=== PATIENT | female | born 1935 | race Caucasian/White ===

== ENCOUNTER 2018-03-25 12:04 | Inpatient (IN) | payer MEDICARE, MEDICAID ==
[2018-03-25] VITALS (26 sets, daily range): BP systolic 82–152; BP diastolic 41–70
[~2018-03-25] VITALS: Ht 144.8 cm; Wt 43.6 kg
[2018-03-25] MEDS ORDERED: PHEN15TA18 PO (12:16)
[2018-03-25] MEDS ORDERED: GABA-529 PO (12:16)
[2018-03-25] MEDS ORDERED: PIPERACILLIN/TAZ 3.375G PREMIX 50 ML IV ONE (12:30)
[2018-03-25] MEDS ORDERED: SODIUM CHLORIDE 0.9% 1000ML BAG (SEPSIS BOLUS) IV ONE (12:30)
[2018-03-25 12:34] LABS: BG CARBOXYHEMOGLOBIN 0.4 % (0.5-1.5); BG DEOXYHEMOGLOBIN 4.9 % (0.0-5.0); BG HCO3 ACT 29.1 mmol/L (22.0-26.0); BG METHEMOGLOBIN 0.2 % (0.0-1.5); BG OXYGEN SATURATION 95.1 % (92.0-98.5); BG OXYHEMOGLOBIN 94.5 % (94.0-97.0); BG PCO2 46.2 mmHg (35.0-45.0); BG PH 7.417 (7.350-7.450); BG PO2 79.9 mmHg (75.0-100.0); BG SAMPLE SITE RIGHT RADIAL; BG VENT MODE ROOM AIR
[2018-03-25] MEDS ORDERED: LEVETIRACETAM 500MG PREMIX 100 ML IV ONE (12:45)
[2018-03-25] MEDS ORDERED: LORAZEPAM 2MG/ML CPJ IV ONE (12:45)
[2018-03-25] MEDS ORDERED: LORAZEPAM 2MG/ML CPJ ONE (12:53)
[2018-03-25] MEDS ORDERED: MIDAZOLAM HCL 50 MG in DEXTROSE 5% WATER 40 ML IV ONE (13:00)
[2018-03-25] MEDS ORDERED: ETOMIDATE 2MG/ML 10ML VIAL IV ONE ×2 (13:00→15:41)
[2018-03-25] MEDS ORDERED: SUCCINYLCHOLINE CHLORIDE 200MG/10ML IV ONE ×2 (13:00→15:41)
[2018-03-25] MEDS ORDERED: VANCOMYCIN 1 G PREMIX 200 ML IV SCH (14:00)
[2018-03-25 14:07] LABS: CHLORIDE 104 mEq/L (98-107)
[2018-03-25 14:10] LABS: PARTIAL THROMBOPLASTIN TIME 24.5 sec (23.4-31.0); PROTHROMBIN TIME 10.2 sec (9.1-11.1)
[2018-03-25 14:33] LABS: BASOPHILS % 1.3 % (0.0-2.0); EOSINOPHILS % 3.9 % (0.0-5.0); HEMATOCRIT. 36.3 % (36.0-48.0); HEMOGLOBIN. 11.4 g/dL (12.0-16.0); LYMPHOCYTES % 26.9 % (20.0-50.0); MEAN CORPUSCULAR HEMOGLOBIN 31.1 pg (28.0-32.0); MEAN CORPUSCULAR VOLUME 98.9 fL (81.0-99.0); MEAN PLATELET VOLUME 10.4 fl (7.4-10.4); MONOCYTES % 8.8 % (2.0-8.0); NEUTROPHILS % 59.1 % (40.0-76.0); PLATELET 299 x1000/uL (130-400); RED BLOOD CELL COUNT 3.67 mill/uL (4.2-5.4); RED CELL DISTRIBUTION WIDTH 14.3 % (11.6-14.6)
[2018-03-25 14:42] LABS: BG BASE EXCESS 1.3 mmol/L (-2.0-2.0); BG CARBOXYHEMOGLOBIN 0.1 % (0.5-1.5); BG DEOXYHEMOGLOBIN 0.5 % (0.0-5.0); BG FRACTION INSPIRED OXYGEN 75; BG HCO3 ACT 24.7 mmol/L (22.0-26.0); BG METHEMOGLOBIN 0.3 % (0.0-1.5); BG OXYGEN SATURATION 99.5 % (92.0-98.5); BG OXYHEMOGLOBIN 99.1 % (94.0-97.0); BG PCO2 34.9 mmHg (35.0-45.0); BG PH 7.468 (7.350-7.450); BG PO2 355.6 mmHg (75.0-100.0); BG SAMPLE SITE LEFT RADIAL; BG TIDAL VOLUME(mL) 350 mL; BG TOTAL HEMOGLOBIN 11.2 g/dL (12.0-18.0); BG VENT MODE VENT - A/C; BG VENT RATE 14 set
[2018-03-25 14:48] LABS: PHENOBARBITAL 3.8 ug/mL (15.0-40.0)
[2018-03-25] MEDS ORDERED: SODIUM BICARBONATE 8.4% 1 MEQ/ML 50ML SYR IV ONE (15:00)
[2018-03-25] MEDS ORDERED: IPRATROPIUM/ALBUTEROL 0.5-3(2.5)MG/3ML NEB INH PRN (15:00)
[2018-03-25] MEDS ORDERED: IPRATROPIUM/ALBUTEROL 0.5-3(2.5)MG/3ML NEB INH SCH (15:00)
[2018-03-25] MEDS ORDERED: DIPHENHYDRAMINE 50MG/ML VIAL IV PRN (15:00)
[2018-03-25] MEDS ORDERED: ONDANSETRON HCL 4MG/2ML INJ IV PRN (15:00)
[2018-03-25] MEDS ORDERED: MAGNESIUM/ALUMINUM HYDROXIDE/SIMETHICONE 30ML UDC PO PRN (15:00)
[2018-03-25] MEDS ORDERED: DOCUSATE SODIUM 100MG CAPSULE PO PRN (15:00)
[2018-03-25] MEDS ORDERED: LORAZEPAM 0.5MG TABLET PO PRN (15:00)
[2018-03-25] MEDS ORDERED: HYDROCODONE/ACETAMINOPHEN 5/325MG TABLET PO PRN (15:00)
[2018-03-25] MEDS ORDERED: LEVETIRACETAM 500 MG in SODIUM CHLORIDE 0.9% 100 ML IV SCH (15:00)
[2018-03-25] MEDS ORDERED: ACETAMINOPHEN 650MG SUPP PR PRN (15:00)
[2018-03-25] MEDS ORDERED: NA PHOS,M-B/NA PHOS,DI-BA ENEMA 118ML PR PRN (15:00)
[2018-03-25] MEDS ORDERED: ACETAMINOPHEN 325MG TABLET PO PRN (15:00)
[2018-03-25] MEDS ORDERED: CLONIDINE 0.1MG TABLET PO PRN (15:00)
[2018-03-25] MEDS ORDERED: PROPOFOL 10MG/ML 100ML 100 ML IV PRN (15:00)
[2018-03-25] MEDS ORDERED: PIPERACILLIN/TAZ 3.375G PREMIX 50 ML IV SCH (15:00)
[2018-03-25] MEDS ORDERED: ALBUTEROL (0.083%) 2.5MG/3ML NEB HHN ONE (15:00)
[2018-03-25] MEDS ORDERED: GUAIFENESIN 200MG/10ML SUGAR FREE UDC PO PRN (15:00)
[2018-03-25 15:12] LABS: CLARITY URINE CLEAR (CLEAR); COLOR URINE YELLOW (YELLOW); KETONES URINE NEGATIVE (NEGATIVE); LEUKOCYTE ESTERASE URINE 1+ (NEGATIVE); NITRITE URINE POSITIVE (NEGATIVE); OCCULT BLOOD URINE NEGATIVE (NEGATIVE); PH URINE 8.5 (4.5-8.0); PROTEIN URINE NEGATIVE (NEGATIVE); SPECIFIC GRAVITY URINE 1.019 (1.005-1.030); UROBILINOGEN URINE 0.2 E.U./dL (0.2-1.0)
[2018-03-25 15:39] LABS: *AMPHETAMINES SCREEN URINE NEGATIVE (NEGATIVE); *BARBITURATES SCREEN URINE PRESUMTIVE POSITIVE (NEGATIVE); *BENZODIAZEPINES SCREEN URINE NEGATIVE (NEGATIVE); *COCAINE SCREEN URINE NEGATIVE (NEGATIVE); CANNABINOID URINE SCREEN NEGATIVE (NEGATIVE); METHADONE URINE SCREEN NEGATIVE (NEGATIVE); OPIATES URINE SCREEN NEGATIVE (NEGATIVE); PHENCYCLIDINE URINE SCREEN NEGATIVE (NEGATIVE)
[2018-03-25] MEDS ORDERED: NOREPINEPHRINE 8 MG in DEXT 5% WATER 242 ML IV ONE ×4 (17:45)
[2018-03-25] MEDS ORDERED: NOREPINEPHRINE 8 MG in DEXT 5% WATER 242 ML IV PRN (19:00)
[2018-03-25] MEDS ORDERED: ENOXAPARIN 30MG/0.3ML SYR SUBCUT SCH (20:00)
[2018-03-25] MEDS: IPRATROPIUM/ALBUTEROL 0.5-3(2.5)MG/3ML NEB INH SCH (20:41)
[2018-03-25 22:22] LABS: CREATINE KINASE MB FRACTION 1.2 ng/mL (0.5-3.6)
[2018-03-25] MEDS: PIPERACILLIN/TAZ 2.25G PREMIX 50 ML IV SCH (22:23)
[2018-03-25] MEDS: DEXT 5%/0.45% NACL 1000ML 1,000 ML IV SCH (22:23)
[2018-03-25] MEDS: PANTOPRAZOLE SODIUM 40 MG/VIAL IV SCH (22:24)
[2018-03-25] MEDS: LEVETIRACETAM 500 MG in SODIUM CHLORIDE 0.9% 100 ML IV SCH (22:25)
[2018-03-26] VITALS (104 sets, daily range): BP systolic 52–160; BP diastolic 26–100
[2018-03-26] MEDS: IPRATROPIUM/ALBUTEROL 0.5-3(2.5)MG/3ML NEB INH SCH ×4 (01:45→22:08)
[2018-03-26 05:44] LABS: BASOPHILS % 0.4 % (0.0-2.0); EOSINOPHILS % 1.4 % (0.0-5.0); HEMATOCRIT. 25.9 % (36.0-48.0); HEMOGLOBIN. 8.5 g/dL (12.0-16.0); LYMPHOCYTES % 11.8 % (20.0-50.0); MEAN CORPUSCULAR HEMOGLOBIN 31.5 pg (28.0-32.0); MEAN CORPUSCULAR VOLUME 96.5 fL (81.0-99.0); MEAN PLATELET VOLUME 9.9 fl (7.4-10.4); NEUTROPHILS % 77.4 % (40.0-76.0); PLATELET 233 x1000/uL (130-400); RED BLOOD CELL COUNT 2.69 mill/uL (4.2-5.4); RED CELL DISTRIBUTION WIDTH 14.4 % (11.6-14.6)
[2018-03-26 06:01] LABS: CHLORIDE 109 mEq/L (98-107)
[2018-03-26 06:18] LABS: LDL CHOLESTEROL 70 mg/dL (5-100)
[2018-03-26 06:19] LABS: CREATINE KINASE 38 IU/L (26-192)
[2018-03-26 06:20] LABS: CREATINE KINASE MB FRACTION 1.4 ng/mL (0.5-3.6); HDL CHOLESTEROL 22 mg/dL (40-59)
[2018-03-26 06:21] LABS: T4 FREE 0.94 ng/dL (0.76-1.46)
[2018-03-26] MEDS: PIPERACILLIN/TAZ 2.25G PREMIX 50 ML IV SCH ×4 (07:15→20:15)
[2018-03-26 08:09] LABS: BG BASE EXCESS 1.9 mmol/L (-2.0-2.0); BG CARBOXYHEMOGLOBIN 0.3 % (0.5-1.5); BG HCO3 ACT 25.6 mmol/L (22.0-26.0); BG METHEMOGLOBIN 0.5 % (0.0-1.5); BG OXYHEMOGLOBIN 98.2 % (94.0-97.0); BG PCO2 36.6 mmHg (35.0-45.0); BG PH 7.463 (7.350-7.450); BG PO2 182.5 mmHg (75.0-100.0); BG SAMPLE SITE RIGHT RADIAL; BG TIDAL VOLUME(mL) 350 mL; BG TOTAL HEMOGLOBIN 9.3 g/dL (12.0-18.0); BG VENT MODE VENT - A/C; BG VENT RATE 14 set
[2018-03-26] MEDS: PANTOPRAZOLE SODIUM 40 MG/VIAL IV SCH (08:41)
[2018-03-26] MEDS: LEVETIRACETAM 500 MG in SODIUM CHLORIDE 0.9% 100 ML IV SCH ×2 (08:41→20:38)
[2018-03-26] MEDS: VANCOMYCIN 750 MG PREMIX 150 ML IV SCH (09:00)
[2018-03-26 09:37] LABS: TOTAL IRON BINDING CAPACITY 244 ug/dL (250-450)
[2018-03-26 09:58] LABS: FERRITIN 43 ng/mL (10-291)
[2018-03-26 10:02] LABS: FOLIC ACID (FOLATE) SERUM >20 ng/mL ng/mL (>5.38)
[2018-03-26 10:15] LABS: VITAMIN B12 SERUM 1428 pg/mL (211-911)
[2018-03-26] MEDS ORDERED: DIATR MEGLU/DIATRIZOATE SOLN 30ML ONE (10:43)
[2018-03-26 12:11] LABS: HEMATOCRIT 28.5 % (36.0-48.0); HEMOGLOBIN 9.4 g/dL (12.0-16.0)
[2018-03-26 12:38] LABS: BG BASE EXCESS -0.4 mmol/L (-2.0-2.0); BG CARBOXYHEMOGLOBIN 0.3 % (0.5-1.5); BG DEOXYHEMOGLOBIN 1.3 % (0.0-5.0); BG FRACTION INSPIRED OXYGEN 40; BG HCO3 ACT 23.8 mmol/L (22.0-26.0); BG METHEMOGLOBIN 0.3 % (0.0-1.5); BG OXYGEN SATURATION 98.7 % (92.0-98.5); BG OXYHEMOGLOBIN 98.1 % (94.0-97.0); BG PCO2 37.1 mmHg (35.0-45.0); BG PH 7.425 (7.350-7.450); BG PO2 156.9 mmHg (75.0-100.0); BG PRESSURE SUPPORT 10; BG SAMPLE SITE RIGHT RADIAL; BG TOTAL HEMOGLOBIN 9.5 g/dL (12.0-18.0); BG VENT MODE VENT - CPAP
[2018-03-26] MEDS: DEXT 5%/0.45% NACL 1000ML 1,000 ML IV SCH (12:40)
[2018-03-26 17:22] LABS: BG BASE EXCESS 1.2 mmol/L (-2.0-2.0); BG CARBOXYHEMOGLOBIN 0.3 % (0.5-1.5); BG DEOXYHEMOGLOBIN 1.4 % (0.0-5.0); BG HCO3 ACT 25.9 mmol/L (22.0-26.0); BG METHEMOGLOBIN 0.4 % (0.0-1.5); BG OXYGEN SATURATION 98.6 % (92.0-98.5); BG OXYHEMOGLOBIN 97.9 % (94.0-97.0); BG PCO2 41.3 mmHg (35.0-45.0); BG PH 7.415 (7.350-7.450); BG PO2 147.9 mmHg (75.0-100.0); BG SAMPLE SITE RIGHT RADIAL; BG VENT MODE T-TUBE
[2018-03-27] VITALS (54 sets, daily range): BP systolic 91–158; BP diastolic 21–83
[2018-03-27] MEDS: PIPERACILLIN/TAZ 2.25G PREMIX 50 ML IV SCH ×4 (01:08→21:21)
[2018-03-27] MEDS: VANCOMYCIN 750 MG PREMIX 150 ML IV SCH ×2 (02:29→21:20)
[2018-03-27] MEDS: DEXT 5%/0.45% NACL 1000ML 1,000 ML IV SCH (04:28)
[2018-03-27 05:37] LABS: HEMATOCRIT 29.1 % (36.0-48.0); HEMOGLOBIN 9.6 g/dL (12.0-16.0); MEAN CORPUSCULAR HEMOGLOBIN 32.2 pg (28.0-32.0); MEAN CORPUSCULAR VOLUME 97.6 fL (81.0-99.0); PLATELET 274 x1000/uL (130-400); RED BLOOD CELL COUNT 2.98 mill/uL (4.2-5.4); RED CELL DISTRIBUTION WIDTH 14.3 % (11.6-14.6)
[2018-03-27 05:59] LABS: CHLORIDE 110 mEq/L (98-107)
[2018-03-27 08:41] LABS: BG BASE EXCESS 1.2 mmol/L (-2.0-2.0); BG CARBOXYHEMOGLOBIN 0.3 % (0.5-1.5); BG DEOXYHEMOGLOBIN 2.3 % (0.0-5.0); BG FRACTION INSPIRED OXYGEN 40; BG HCO3 ACT 25.4 mmol/L (22.0-26.0); BG METHEMOGLOBIN 0.2 % (0.0-1.5); BG OXYGEN SATURATION 97.7 % (92.0-98.5); BG OXYHEMOGLOBIN 97.2 % (94.0-97.0); BG PCO2 38.6 mmHg (35.0-45.0); BG PH 7.436 (7.350-7.450); BG SAMPLE SITE RIGHT RADIAL; BG TOTAL HEMOGLOBIN 9.3 g/dL (12.0-18.0); BG VENT MODE T-TUBE
[2018-03-27] MEDS: IPRATROPIUM/ALBUTEROL 0.5-3(2.5)MG/3ML NEB INH SCH ×3 (08:41→20:02)
[2018-03-27] MEDS: PANTOPRAZOLE SODIUM 40 MG/VIAL IV SCH (08:44)
[2018-03-27] MEDS: LEVETIRACETAM 500 MG in SODIUM CHLORIDE 0.9% 100 ML IV SCH (09:53)
[2018-03-27] MEDS: LEVETIRACETAM 500MG/5ML CUP PO SCH (22:05)
[2018-03-28] VITALS (67 sets, daily range): BP systolic 77–148; BP diastolic 17–101
[2018-03-28] MEDS: IPRATROPIUM/ALBUTEROL 0.5-3(2.5)MG/3ML NEB INH SCH ×3 (00:57→21:24)
[2018-03-28] MEDS: PIPERACILLIN/TAZ 2.25G PREMIX 50 ML IV SCH ×4 (02:28→22:06)
[2018-03-28] MEDS: LEVETIRACETAM 500MG/5ML CUP PO SCH ×2 (08:17→22:06)
[2018-03-28] MEDS: PANTOPRAZOLE SODIUM 40 MG/VIAL IV SCH (08:17)
[2018-03-28] MEDS ORDERED: LACTULOSE 20G/30ML UDC PO PRN (10:15)
[2018-03-28] MEDS ORDERED: LACTULOSE 20G/30ML UDC PO NR (10:15)
[2018-03-28] MEDS ORDERED: DOCUSATE SODIUM 250MG CAPSULE PO SCH (10:15)
[2018-03-28] MEDS: DOCUSATE SODIUM SUGAR FREE 100MG/10ML UDC NG SCH (13:29)
[2018-03-28] MEDS: IRON SUCROSE COMPLEX 100 MG/5 ML ML IV SCH (13:29)
[2018-03-28] MEDS: VANCOMYCIN 750 MG PREMIX 150 ML IV SCH (16:11)
[2018-03-29] VITALS (13 sets, daily range): BP systolic 97–132; BP diastolic 53–80
[2018-03-29] MEDS: IPRATROPIUM/ALBUTEROL 0.5-3(2.5)MG/3ML NEB INH SCH ×4 (00:53→20:26)
[2018-03-29] MEDS: PIPERACILLIN/TAZ 2.25G PREMIX 50 ML IV SCH ×4 (03:55→20:58)
[2018-03-29] MEDS ORDERED: VANCOMYCIN 500 MG PREMIX 100 ML IV SCH (06:00)
[2018-03-29 07:20] LABS: CHLORIDE 109 mEq/L (98-107)
[2018-03-29] MEDS ORDERED: LIDOCAINE HCL 1% 20ML VIAL (Pyxis) INJ ONE (07:32)
[2018-03-29] MEDS: DOCUSATE SODIUM SUGAR FREE 100MG/10ML UDC NG SCH (09:28)
[2018-03-29] MEDS: LEVETIRACETAM 500MG/5ML CUP PO SCH ×2 (09:28→20:58)
[2018-03-29] MEDS: PANTOPRAZOLE SODIUM 40 MG/VIAL IV SCH (09:28)
[2018-03-29] MEDS: IRON SUCROSE COMPLEX 100 MG/5 ML ML IV SCH (09:28)
[2018-03-29 09:44] LABS: HEMATOCRIT 27.3 % (36.0-48.0); HEMOGLOBIN 8.9 g/dL (12.0-16.0); MEAN CORPUSCULAR HEMOGLOBIN 31.6 pg (28.0-32.0); MEAN CORPUSCULAR VOLUME 96.8 fL (81.0-99.0); PLATELET 250 x1000/uL (130-400); RED BLOOD CELL COUNT 2.82 mill/uL (4.2-5.4); RED CELL DISTRIBUTION WIDTH 13.9 % (11.6-14.6)
== END 2018-03-29 22:05 | disposition home health service (06) | DRG 208 ==
LOC: ER 12:04 → EDBEDREQSVC 13:01 → EDBEDREQTM 13:01 → EDBEDREQ 13:01 → MICUSO 13:37 → EDBEDREQTM 13:43 → EDBEDREQ 13:43 → ENRESERV 16:29 → MICUSO 18:00 → 5EST 03-28 18:29
PROVIDERS: ADMIT Internal Medicine; ATTEND Ophthalmology
PROC: 5A1945Z Respiratory Ventilation, 24-96 Consecutive Hours (ICD-10-PCS; principal; 2018-03-25)
PROC: 0BH17EZ Insertion of Endotracheal Airway into Trachea, Via Natural or Artificial Opening (ICD-10-PCS; 2018-03-25)
PROC: 0CJS8ZZ Inspection of Larynx, Via Natural or Artificial Opening Endoscopic (ICD-10-PCS; 2018-03-25)
PROC: 02HV33Z Insertion of Infusion Device into Superior Vena Cava, Percutaneous Approach (ICD-10-PCS; 2018-03-29)
PROC: B548ZZA Ultrasonography of Superior Vena Cava, Guidance (ICD-10-PCS; 2018-03-29)
DX: J69.0 Pneumonitis due to inhalation of food and vomit (principal); J96.01 Acute respiratory failure with hypoxia; K94.22 Gastrostomy infection; L03.311 Cellulitis of abdominal wall; E87.2 Acidosis; G93.40 Encephalopathy, unspecified; J44.1 Chronic obstructive pulmonary disease with (acute) exacerbation; N39.0 Urinary tract infection, site not specified; G40.409 Other generalized epilepsy and epileptic syndromes, not intractable, without status epilepticus; E87.5 Hyperkalemia; D64.9 Anemia, unspecified; R13.12 Dysphagia, oropharyngeal phase; B96.5 Pseudomonas (aeruginosa) (mallei) (pseudomallei) as the cause of diseases classified elsewhere; B95.61 Methicillin susceptible Staphylococcus aureus infection as the cause of diseases classified elsewhere; B95.2 Enterococcus as the cause of diseases classified elsewhere; Y83.8 Other surgical procedures as the cause of abnormal reaction of the patient, or of later complication, without mention of misadventure at the time of the procedure; T42.75XA Adverse effect of unspecified antiepileptic and sedative-hypnotic drugs, initial encounter; F03.90 Unspecified dementia, unspecified severity, without behavioral disturbance, psychotic disturbance, mood disturbance, and anxiety; E78.1 Pure hyperglyceridemia; B96.20 Unspecified Escherichia coli [E. coli] as the cause of diseases classified elsewhere; G24.9 Dystonia, unspecified; D50.9 Iron deficiency anemia, unspecified; K44.9 Diaphragmatic hernia without obstruction or gangrene; Y92.89 Other specified places as the place of occurrence of the external cause; Z79.899 Other long term (current) drug therapy; Z86.61 Personal history of infections of the central nervous system; Z74.01 Bed confinement status; Z90.49 Acquired absence of other specified parts of digestive tract; Z78.1 Physical restraint status; Z68.20 Body mass index [BMI] 20.0-20.9, adult
CPT/HCPCS: 36415; 36569; 36600; 70551; 71045; 74018; 76937; 80048; 80061; 80184; 80202; 80305; 82270; 82375; 82550; 82553; 82607; 82728; 82746; 82805; 83540; 83550; 83605; 83880; 84132; 84145; 84439; 84443; 84484; 85014; 85018; 85027; 85044; 86850; 86900; 87070; 87077; 87186; 93005; 93970; 94002; 94003; 94640; 94644; 96365; 96375; 99291; C1725; C9113; J0330; J1200; J1650; J1953; J2060; J2250; J2405; J2543; J2704; J3370; J3490; J7030; J7050; J7060; J7611; J7620; Q9963

== ENCOUNTER 2020-02-27 12:06 | Inpatient (IN) | payer MEDICARE, MEDICAID ==
[~2020-02-27] VITALS: Ht 160 cm; Wt 38.1 kg
[~2020-02-27 12:06] MED LIST: CALC-3 MT; FAMO20TA8 MT; FOLI-43 MT; GABA-529 PO; LEVE500T98 MT; PHEN15TA18 PO; TRAZ-251 MT
[2020-02-27] MEDS ORDERED: DEXAMETHASONE 10 MG/ML VIAL IV ONE (12:30)
[2020-02-27 13:08] LABS: HEMATOCRIT. 42.2 % (36.0-48.0); HEMOGLOBIN. 12.9 g/dL (12.0-16.0); MEAN CORPUSCULAR HEMOGLOBIN 28.8 pg (28.0-32.0); MEAN CORPUSCULAR VOLUME 94.3 fL (81.0-99.0); PLATELET 257 x1000/uL (130-400); RED BLOOD CELL COUNT 4.47 mill/uL (4.2-5.4); RED CELL DISTRIBUTION WIDTH 17.9 % (11.6-14.6)
[2020-02-27 13:14] LABS: CHLORIDE 120 mEq/L (98-107)
[2020-02-27 13:21] LABS: D-DIMER 2.75 mg/L FEU (<0.50); INR 1.1; PROTHROMBIN TIME 11.6 sec (9.6-11.0)
[2020-02-27 13:22] LABS: PLATELET ESTIMATE NORMAL
[2020-02-27 14:07] LABS: BG BASE EXCESS -0.3 mmol/L (-2.0-2.0); BG CARBOXYHEMOGLOBIN 0.2 % (0.5-1.5); BG DEOXYHEMOGLOBIN 0.6 % (0.0-5.0); BG FRACTION INSPIRED OXYGEN 100; BG HCO3 ACT 23.8 mmol/L (22.0-26.0); BG OXYGEN SATURATION 99.4 % (92.0-98.5); BG OXYHEMOGLOBIN 99.2 % (94.0-97.0); BG PCO2 37.3 mmHg (35.0-45.0); BG PH 7.423 (7.350-7.450); BG PO2 304.7 mmHg (75.0-100.0); BG SAMPLE SITE RIGHT BRACHIAL; BG TOTAL HEMOGLOBIN 12.9 g/dL (12.0-18.0); BG TOTAL RESPIRATORY RATE 20 b/min; BG VENT MODE MASK - BIPAP
[2020-02-27] MEDS ORDERED: PIPERACILLIN/TAZ 3.375G PREMIX 50 ML IV SCH (14:30)
[2020-02-27] MEDS ORDERED: PIPERACILLIN/TAZOBACTAM 3.375GM/50ML PREMIX IV ONE (14:30)
[2020-02-27] MEDS ORDERED: VANCOMYCIN 1 G PREMIX 200 ML IV SCH (14:30)
[2020-02-27 15:00] LABS: CLARITY URINE CLOUDY (CLEAR); COLOR URINE DARK YELLOW (YELLOW); KETONES URINE TRACE (NEGATIVE); LEUKOCYTE ESTERASE URINE 1+ (NEGATIVE); NITRITE URINE NEGATIVE (NEGATIVE); OCCULT BLOOD URINE NEGATIVE (NEGATIVE); PROTEIN URINE 2+ (NEGATIVE); SPECIFIC GRAVITY URINE 1.027 (1.005-1.030)
[2020-02-27] MEDS ORDERED: MORPHINE SULFATE 4 MG/ML CPJ (NOT FOR IM USE) IV ONE (15:00)
[2020-02-27] MEDS ORDERED: SODIUM CHLORIDE 0.9% 500 ML IV ONE (15:15)
[2020-02-27] MEDS ORDERED: NOREPINEPHRINE 8 MG in DEXT 5% WATER 242 ML IV PRN (18:15)
[2020-02-27] MEDS ORDERED: DEXTROSE 50% WATER 50ML SYRINGE IV PRN (18:30)
[2020-02-27] MEDS ORDERED: ONDANSETRON HCL 4MG/2ML INJ IV PRN (18:30)
[2020-02-27] MEDS ORDERED: MORPHINE SULFATE 2 MG/ML CPJ (NOT FOR IM USE) IV PRN (18:30)
[2020-02-27] MEDS ORDERED: ACETAMINOPHEN 650MG SUPP PR PRN (18:30)
[2020-02-27] MEDS ORDERED: DIPHENHYDRAMINE 50MG/ML VIAL IV PRN (18:30)
[2020-02-27] MEDS ORDERED: DIATR MEGLU/DIATRIZOATE SOLN 30ML ONE (19:11)
[2020-02-27] MEDS: FAMOTIDINE 20MG/2ML VIAL IV SCH (19:12)
[2020-02-27] MEDS: DEXTROSE 5% WATER 1,000 ML IV SCH (19:12)
[2020-02-27] MEDS: NOREPINEPHRINE 8 MG in DEXT 5% WATER 242 ML IV PRN (19:13)
[2020-02-27] MEDS: ENOXAPARIN 30MG/0.3ML SYR SUBCUT SCH (19:53)
[2020-02-27] MEDS: BLOOD SUGAR DIAGNOSTIC STRIP TEST SCH (20:05)
[2020-02-27] MEDS: INSULIN LISPRO 100 UNITS/ML SUBCUT SCH (20:11)
[2020-02-27] MEDS: LEVETIRACETAM 500MG PREMIX 100 ML IV SCH (20:39)
[2020-02-27] MEDS: PIPERACILLIN/TAZOBACTAM 2.25 G in DEXTROSE 5% WATER 50 ML IV SCH (21:35)
[2020-02-27 23:21] LABS: CREATINE KINASE MB FRACTION 1.9 ng/mL (0.5-3.6)
[2020-02-28 04:18] LABS: HEMATOCRIT. 32.1 % (36.0-48.0); HEMOGLOBIN. 10.2 g/dL (12.0-16.0); MEAN CORPUSCULAR VOLUME 91.4 fL (81.0-99.0); PLATELET 209 x1000/uL (130-400); RED BLOOD CELL COUNT 3.51 mill/uL (4.2-5.4); RED CELL DISTRIBUTION WIDTH 16.4 % (11.6-14.6)
[2020-02-28 04:25] LABS: CHLORIDE 121 mEq/L (98-107)
[2020-02-28 04:36] LABS: CREATINE KINASE MB FRACTION 2.6 ng/mL (0.5-3.6)
[2020-02-28 04:37] LABS: LDL CHOLESTEROL 58 mg/dL (5-100)
[2020-02-28 04:38] LABS: CREATINE KINASE 70 IU/L (26-192); HDL CHOLESTEROL 47 mg/dL (40-59)
[2020-02-28 04:39] LABS: T4 FREE 1.32 ng/dL (0.76-1.46)
[2020-02-28] MEDS: LORAZEPAM 2MG/ML CPJ IV PRN (05:00)
[2020-02-28 06:00] LABS: BG CARBOXYHEMOGLOBIN 0.3 % (0.5-1.5); BG DEOXYHEMOGLOBIN 0.5 % (0.0-5.0); BG FRACTION INSPIRED OXYGEN 100; BG HCO3 ACT 26.8 mmol/L (22.0-26.0); BG METHEMOGLOBIN 0.3 % (0.0-1.5); BG OXYGEN SATURATION 99.5 % (92.0-98.5); BG OXYHEMOGLOBIN 98.9 % (94.0-97.0); BG PCO2 42.6 mmHg (35.0-45.0); BG PH 7.416 (7.350-7.450); BG PO2 353.3 mmHg (75.0-100.0); BG TOTAL HEMOGLOBIN 10.8 g/dL (12.0-18.0); BG VENT MODE MASK - NRB
[2020-02-28] MEDS: PIPERACILLIN/TAZOBACTAM 2.25 G in DEXTROSE 5% WATER 50 ML IV SCH ×3 (06:00→23:09)
[2020-02-28 06:57] LABS: PLATELET ESTIMATE NORMAL
[2020-02-28] MEDS: BLOOD SUGAR DIAGNOSTIC STRIP TEST SCH ×4 (08:41→20:08)
[2020-02-28] MEDS: INSULIN LISPRO 100 UNITS/ML SUBCUT SCH ×4 (08:41→20:08)
[2020-02-28] MEDS: DEXTROSE 5% WATER 1,000 ML IV SCH ×2 (08:46→21:25)
[2020-02-28] MEDS ORDERED: LIDOCAINE HCL 1% 20ML VIAL (Pyxis) INJ ONE (09:06)
[2020-02-28] MEDS: FAMOTIDINE 20MG/2ML VIAL IV SCH (10:17)
[2020-02-28] MEDS ORDERED: VANCOMYCIN 500 MG PREMIX 100 ML IV SCH (11:00)
[2020-02-28] MEDS: LEVETIRACETAM 500MG PREMIX 100 ML IV SCH ×2 (12:19→23:08)
[2020-02-28] MEDS ORDERED: DIATR MEGLU/DIATRIZOATE SOLN 30ML ONE (13:55)
[2020-02-28] MEDS: MIDODRINE HCL 5MG TABLET PO SCH ×2 (15:45→21:00)
[2020-02-28] MEDS ORDERED: SORBITOL 70% SOLN 30ML PO NR (18:45)
[2020-02-28] MEDS ORDERED: BISACODYL 10MG SUPP PR PRN (18:45)
[2020-02-28] MEDS: LACTULOSE 20G/30ML UDC PO SCH (23:09)
[2020-02-28] MEDS: ENOXAPARIN 30MG/0.3ML SYR SUBCUT SCH (23:09)
[2020-02-29 05:28] LABS: CHLORIDE 113 mEq/L (98-107)
[2020-02-29 05:43] LABS: TOTAL IRON BINDING CAPACITY 221 ug/dL (250-450)
[2020-02-29 05:51] LABS: BASOPHILS % 0.4 % (0.0-2.0); EOSINOPHILS % 0.1 % (0.0-5.0); HEMATOCRIT. 32.7 % (36.0-48.0); HEMOGLOBIN. 10.5 g/dL (12.0-16.0); MEAN CORPUSCULAR HEMOGLOBIN 31.1 pg (28.0-32.0); MEAN CORPUSCULAR VOLUME 96.9 fL (81.0-99.0); MEAN PLATELET VOLUME 11.7 fl (7.4-10.4); MONOCYTES % 4.2 % (2.0-8.0); NEUTROPHILS % 84.3 % (40.0-76.0); PLATELET 214 x1000/uL (130-400); RED BLOOD CELL COUNT 3.38 mill/uL (4.2-5.4)
[2020-02-29] MEDS: PIPERACILLIN/TAZOBACTAM 2.25 G in DEXTROSE 5% WATER 50 ML IV SCH ×3 (05:53→18:00)
[2020-02-29] MEDS: BLOOD SUGAR DIAGNOSTIC STRIP TEST SCH ×4 (06:24→20:14)
[2020-02-29] MEDS: INSULIN LISPRO 100 UNITS/ML SUBCUT SCH ×4 (06:24→20:15)
[2020-02-29] MEDS: POLYETHYLENE GLYCOL 3350 (17GM) 1 DOSE PACK PO SCH (09:00)
[2020-02-29] MEDS: MIDODRINE HCL 5MG TABLET PO SCH ×2 (09:12→13:36)
[2020-02-29] MEDS: DEXTROSE 5% WATER 1,000 ML IV SCH (12:20)
[2020-02-29] MEDS: LEVETIRACETAM 500MG PREMIX 100 ML IV SCH ×2 (12:34→20:14)
[2020-02-29] MEDS: PANTOPRAZOLE SODIUM 40 MG/VIAL IV SCH (13:04)
[2020-02-29] MEDS: VANCOMYCIN 750 MG PREMIX 150 ML IV SCH (13:36)
[2020-02-29] MEDS ORDERED: HYDROCODONE/ACETAMINOPHEN 5/325MG TABLET PO PRN (18:30)
[2020-02-29] MEDS: LACTULOSE 20G/30ML UDC PO SCH (20:45)
[2020-02-29] MEDS: ENOXAPARIN 30MG/0.3ML SYR SUBCUT SCH (22:00)
[2020-03-01 04:32] LABS: BASOPHILS % 0.1 % (0.0-2.0); EOSINOPHILS % 0.9 % (0.0-5.0); HEMATOCRIT. 31.6 % (36.0-48.0); HEMOGLOBIN. 10.2 g/dL (12.0-16.0); LYMPHOCYTES % 8.9 % (20.0-50.0); MEAN CORPUSCULAR HEMOGLOBIN 29.3 pg (28.0-32.0); MEAN CORPUSCULAR VOLUME 90.6 fL (81.0-99.0); MEAN PLATELET VOLUME 10.8 fl (7.4-10.4); MONOCYTES % 5.6 % (2.0-8.0); NEUTROPHILS % 84.5 % (40.0-76.0); PLATELET 186 x1000/uL (130-400); RED BLOOD CELL COUNT 3.49 mill/uL (4.2-5.4); RED CELL DISTRIBUTION WIDTH 15.9 % (11.6-14.6)
[2020-03-01] MEDS: PIPERACILLIN/TAZOBACTAM 2.25 G in DEXTROSE 5% WATER 50 ML IV SCH ×4 (04:34→17:32)
[2020-03-01] MEDS: DEXTROSE 5% WATER 1,000 ML IV SCH (06:00)
[2020-03-01] MEDS: BLOOD SUGAR DIAGNOSTIC STRIP TEST SCH ×4 (06:27→21:00)
[2020-03-01] MEDS: INSULIN LISPRO 100 UNITS/ML SUBCUT SCH ×4 (06:28→22:35)
[2020-03-01] MEDS: LEVETIRACETAM 500MG PREMIX 100 ML IV SCH ×2 (09:56→22:00)
[2020-03-01] MEDS: PANTOPRAZOLE SODIUM 40 MG/VIAL IV SCH (09:56)
[2020-03-01] MEDS: VANCOMYCIN 750 MG PREMIX 150 ML IV SCH (10:27)
[2020-03-01] MEDS: POLYETHYLENE GLYCOL 3350 (17GM) 1 DOSE PACK PO SCH (10:27)
[2020-03-01] MEDS: MIDODRINE HCL 5MG TABLET PO SCH ×3 (10:27→17:00)
[2020-03-01] MEDS: LORAZEPAM 2MG/ML CPJ IV PRN (12:45)
[2020-03-01] MEDS ORDERED: LORAZEPAM 2MG/ML CPJ IV NR (14:33)
[2020-03-01 15:43] LABS: BG BASE EXCESS -5.4 mmol/L (-2.0-2.0); BG CARBOXYHEMOGLOBIN 0.2 % (0.5-1.5); BG DEOXYHEMOGLOBIN 11.3 % (0.0-5.0); BG FRACTION INSPIRED OXYGEN 21; BG HCO3 ACT 20.2 mmol/L (22.0-26.0); BG METHEMOGLOBIN 0.3 % (0.0-1.5); BG OXYGEN SATURATION 88.6 % (92.0-98.5); BG OXYHEMOGLOBIN 88.2 % (94.0-97.0); BG PCO2 39.6 mmHg (35.0-45.0); BG PH 7.325 (7.350-7.450); BG PO2 61.4 mmHg (75.0-100.0); BG SAMPLE SITE RIGHT BRACHIAL; BG VENT MODE ROOM AIR
[2020-03-01] MEDS: QUETIAPINE FUMARATE 25MG TABLET PO SCH (21:00)
[2020-03-01] MEDS: ENOXAPARIN 30MG/0.3ML SYR SUBCUT SCH (21:00)
[2020-03-01] MEDS: LACTULOSE 20G/30ML UDC PO SCH (21:00)
[2020-03-02] MEDS: DEXTROSE 5% WATER 1,000 ML IV SCH (00:13)
[2020-03-02] MEDS: VANCOMYCIN 750 MG PREMIX 150 ML IV SCH (01:00)
[2020-03-02 05:23] LABS: HEMATOCRIT. 33.7 % (36.0-48.0); HEMOGLOBIN. 11.1 g/dL (12.0-16.0); MEAN CORPUSCULAR HEMOGLOBIN 30.2 pg (28.0-32.0); MEAN PLATELET VOLUME 10.8 fl (7.4-10.4); PLATELET 227 x1000/uL (130-400); RED BLOOD CELL COUNT 3.66 mill/uL (4.2-5.4)
[2020-03-02 05:36] LABS: CHLORIDE 115 mEq/L (98-107)
[2020-03-02] MEDS: PIPERACILLIN/TAZOBACTAM 2.25 G in DEXTROSE 5% WATER 50 ML IV SCH ×4 (06:00→19:45)
[2020-03-02] MEDS: INSULIN LISPRO 100 UNITS/ML SUBCUT SCH ×3 (07:00→17:00)
[2020-03-02] MEDS: BLOOD SUGAR DIAGNOSTIC STRIP TEST SCH ×4 (07:07→23:47)
[2020-03-02] MEDS: LORAZEPAM 2MG/ML CPJ IV PRN ×3 (11:16→22:54)
[2020-03-02] MEDS: LEVETIRACETAM 500MG PREMIX 100 ML IV SCH ×2 (11:31→22:15)
[2020-03-02] MEDS: PANTOPRAZOLE SODIUM 40 MG/VIAL IV SCH (11:31)
[2020-03-02] MEDS: MIDODRINE HCL 5MG TABLET PO SCH ×3 (13:35→17:00)
[2020-03-02] MEDS: QUETIAPINE FUMARATE 25MG TABLET PO SCH (13:35)
[2020-03-02] MEDS: POLYETHYLENE GLYCOL 3350 (17GM) 1 DOSE PACK PO SCH (13:35)
[2020-03-02 15:44] LABS: PLATELET ESTIMATE NORMAL
[2020-03-02] MEDS: CALAMINE LOTION 120ML TOP SCH (16:37)
[2020-03-02] MEDS: VITAMINS A AND D OINT TUBE TOP SCH (16:37)
[2020-03-02] MEDS: ENOXAPARIN 30MG/0.3ML SYR SUBCUT SCH (20:00)
[2020-03-02] MEDS: LACTULOSE 20G/30ML UDC PO SCH (21:00)
[2020-03-03] VITALS (41 sets, daily range): BP systolic 71–188; BP diastolic 18–107
[2020-03-03 04:36] LABS: BASOPHILS % 0.2 % (0.0-2.0); EOSINOPHILS % 1.6 % (0.0-5.0); HEMATOCRIT. 33.9 % (36.0-48.0); HEMOGLOBIN. 10.2 g/dL (12.0-16.0); MEAN CORPUSCULAR HEMOGLOBIN 29.1 pg (28.0-32.0); MEAN CORPUSCULAR VOLUME 96.9 fL (81.0-99.0); MEAN PLATELET VOLUME 11.5 fl (7.4-10.4); MONOCYTES % 5.7 % (2.0-8.0); NEUTROPHILS % 84.5 % (40.0-76.0); PLATELET 166 x1000/uL (130-400); RED CELL DISTRIBUTION WIDTH 16.3 % (11.6-14.6)
[2020-03-03 04:45] LABS: CHLORIDE 87 mEq/L (98-107)
[2020-03-03] MEDS: PIPERACILLIN/TAZOBACTAM 2.25 G in DEXTROSE 5% WATER 50 ML IV SCH ×4 (05:00→17:36)
[2020-03-03] MEDS: INSULIN LISPRO 100 UNITS/ML SUBCUT SCH ×5 (06:01→21:48)
[2020-03-03] MEDS: BLOOD SUGAR DIAGNOSTIC STRIP TEST SCH ×4 (06:30→21:35)
[2020-03-03] MEDS ORDERED: VANCOMYCIN 750 MG PREMIX 150 ML IV SCH (07:00)
[2020-03-03] MEDS: POLYETHYLENE GLYCOL 3350 (17GM) 1 DOSE PACK PO SCH (08:13)
[2020-03-03] MEDS: LEVETIRACETAM 500MG PREMIX 100 ML IV SCH ×2 (09:00→21:52)
[2020-03-03] MEDS: QUETIAPINE FUMARATE 25MG TABLET PO SCH (09:00)
[2020-03-03] MEDS: MIDODRINE HCL 5MG TABLET PO SCH ×3 (10:22→17:36)
[2020-03-03] MEDS: PANTOPRAZOLE SODIUM 40 MG/VIAL IV SCH (10:22)
[2020-03-03] MEDS: NOREPINEPHRINE 8 MG in DEXT 5% WATER 242 ML IV PRN ×3 (14:35→21:55)
[2020-03-03] MEDS: VITAMINS A AND D OINT TUBE TOP SCH ×2 (14:35→21:52)
[2020-03-03] MEDS: CALAMINE LOTION 120ML TOP SCH ×2 (14:35→21:56)
[2020-03-03] MEDS: LORAZEPAM 2MG/ML CPJ IV PRN ×2 (16:59→22:11)
[2020-03-03] MEDS: ENOXAPARIN 30MG/0.3ML SYR SUBCUT SCH (20:21)
[2020-03-03] MEDS: LACTULOSE 20G/30ML UDC PO SCH (21:00)
[2020-03-03] MEDS ORDERED: NOREPINEPHRINE 32 MG in DEXT 5% WATER 218 ML IV PRN (21:57)
[2020-03-03] MEDS ORDERED: SODIUM CHLORIDE 0.9% 1,000 ML IV ONE (23:00)
[2020-03-03] MEDS ORDERED: MORPHINE SULFATE 2 MG/ML CPJ (NOT FOR IM USE) IV PRN (23:00)
[2020-03-03] MEDS: MORPHINE SULFATE 2 MG/ML CPJ (NOT FOR IM USE) IV PRN (23:04)
[2020-03-04] VITALS (92 sets, daily range): BP systolic 58–180; BP diastolic 21–134
[2020-03-04] MEDS: SODIUM CHLORIDE 0.9% 1,000 ML IV SCH ×2 (00:21→08:38)
[2020-03-04] MEDS: PIPERACILLIN/TAZOBACTAM 2.25 G in DEXTROSE 5% WATER 50 ML IV SCH ×4 (00:25→18:03)
[2020-03-04] MEDS: MORPHINE SULFATE 2 MG/ML CPJ (NOT FOR IM USE) IV PRN ×2 (05:23→12:01)
[2020-03-04] MEDS: VANCOMYCIN 500 MG PREMIX 100 ML IV SCH (05:25)
[2020-03-04] MEDS: CALAMINE LOTION 120ML TOP SCH ×3 (05:57→21:56)
[2020-03-04] MEDS: VITAMINS A AND D OINT TUBE TOP SCH ×3 (05:58→21:57)
[2020-03-04 06:14] LABS: BASOPHILS % 0.4 % (0.0-2.0); EOSINOPHILS % 2.8 % (0.0-5.0); HEMATOCRIT. 30.1 % (36.0-48.0); HEMOGLOBIN. 9.8 g/dL (12.0-16.0); LYMPHOCYTES % 22.1 % (20.0-50.0); MEAN CORPUSCULAR HEMOGLOBIN 30.4 pg (28.0-32.0); MEAN CORPUSCULAR VOLUME 93.1 fL (81.0-99.0); MEAN PLATELET VOLUME 10.6 fl (7.4-10.4); MONOCYTES % 10.5 % (2.0-8.0); NEUTROPHILS % 64.2 % (40.0-76.0); PLATELET 194 x1000/uL (130-400); RED BLOOD CELL COUNT 3.24 mill/uL (4.2-5.4); RED CELL DISTRIBUTION WIDTH 15.3 % (11.6-14.6)
[2020-03-04] MEDS: BLOOD SUGAR DIAGNOSTIC STRIP TEST SCH ×4 (07:30→21:00)
[2020-03-04] MEDS: INSULIN LISPRO 100 UNITS/ML SUBCUT SCH ×4 (08:00→21:00)
[2020-03-04] MEDS: PANTOPRAZOLE SODIUM 40 MG/VIAL IV SCH (08:37)
[2020-03-04] MEDS: LEVETIRACETAM 500MG PREMIX 100 ML IV SCH ×2 (08:38→22:38)
[2020-03-04] MEDS: MIDODRINE HCL 5MG TABLET PO SCH ×3 (08:39→17:00)
[2020-03-04] MEDS: POLYETHYLENE GLYCOL 3350 (17GM) 1 DOSE PACK PO SCH (08:39)
[2020-03-04] MEDS: QUETIAPINE FUMARATE 25MG TABLET PO SCH (08:39)
[2020-03-04] MEDS: LACTULOSE 20G/30ML UDC PO SCH (21:00)
[2020-03-04] MEDS: ENOXAPARIN 30MG/0.3ML SYR SUBCUT SCH (21:35)
[2020-03-04] MEDS: DEXT 5%/0.9% NACL 1,000 ML IV SCH (21:43)
[2020-03-04] MEDS: VITAMINS A AND D OINT 5GM UDPKT TOP SCH (22:15)
[2020-03-05] VITALS (84 sets, daily range): BP systolic 35–169; BP diastolic 14–141
[2020-03-05] MEDS: PIPERACILLIN/TAZOBACTAM 2.25 G in DEXTROSE 5% WATER 50 ML IV SCH ×4 (00:21→17:56)
[2020-03-05] MEDS: VITAMINS A AND D OINT 5GM UDPKT TOP SCH ×3 (06:00→21:55)
[2020-03-05] MEDS: CALAMINE LOTION 120ML TOP SCH ×3 (06:00→21:55)
[2020-03-05] MEDS: DEXT 5%/0.9% NACL 1,000 ML IV SCH ×2 (06:00→16:00)
[2020-03-05] MEDS: BLOOD SUGAR DIAGNOSTIC STRIP TEST SCH ×4 (06:41→21:00)
[2020-03-05] MEDS: VANCOMYCIN 500 MG PREMIX 100 ML IV SCH (06:52)
[2020-03-05] MEDS: INSULIN LISPRO 100 UNITS/ML SUBCUT SCH ×4 (08:00→21:00)
[2020-03-05] MEDS: POLYETHYLENE GLYCOL 3350 (17GM) 1 DOSE PACK PO SCH (09:00)
[2020-03-05] MEDS: MIDODRINE HCL 5MG TABLET PO SCH ×3 (09:00→16:55)
[2020-03-05] MEDS: QUETIAPINE FUMARATE 25MG TABLET PO SCH (09:00)
[2020-03-05] MEDS: PANTOPRAZOLE SODIUM 40 MG/VIAL IV SCH (09:47)
[2020-03-05] MEDS: LEVETIRACETAM 500MG PREMIX 100 ML IV SCH ×2 (09:47→21:00)
[2020-03-05 10:29] LABS: BASOPHILS % 0.2 % (0.0-2.0); EOSINOPHILS % 1.9 % (0.0-5.0); HEMATOCRIT. 29.5 % (36.0-48.0); HEMOGLOBIN. 9.4 g/dL (12.0-16.0); LYMPHOCYTES % 10.1 % (20.0-50.0); MEAN CORPUSCULAR HEMOGLOBIN 29.2 pg (28.0-32.0); MEAN CORPUSCULAR VOLUME 91.7 fL (81.0-99.0); MEAN PLATELET VOLUME 9.9 fl (7.4-10.4); MONOCYTES % 7.1 % (2.0-8.0); NEUTROPHILS % 80.7 % (40.0-76.0); PLATELET 216 x1000/uL (130-400); RED BLOOD CELL COUNT 3.21 mill/uL (4.2-5.4); RED CELL DISTRIBUTION WIDTH 15.7 % (11.6-14.6)
[2020-03-05] MEDS ORDERED: FLUDROCORTISONE ACETATE 0.1MG TABLET PO NR (11:30)
[2020-03-05 11:33] LABS: BG BASE EXCESS -7.5 mmol/L (-2.0-2.0); BG CARBOXYHEMOGLOBIN 0.2 % (0.5-1.5); BG DEOXYHEMOGLOBIN 1.4 % (0.0-5.0); BG FRACTION INSPIRED OXYGEN 40; BG HCO3 ACT 16.6 mmol/L (22.0-26.0); BG METHEMOGLOBIN 0.3 % (0.0-1.5); BG OXYGEN SATURATION 98.6 % (92.0-98.5); BG OXYHEMOGLOBIN 98.1 % (94.0-97.0); BG PCO2 29.2 mmHg (35.0-45.0); BG PH 7.373 (7.350-7.450); BG PO2 163.2 mmHg (75.0-100.0); BG SAMPLE SITE RIGHT RADIAL; BG VENT MODE NASAL CANNULA
[2020-03-05] MEDS: ENOXAPARIN 30MG/0.3ML SYR SUBCUT SCH (20:00)
[2020-03-05] MEDS: LORAZEPAM 2MG/ML CPJ IV PRN (20:18)
[2020-03-05] MEDS: LACTULOSE 20G/30ML UDC PO SCH (21:00)
[2020-03-06] VITALS (68 sets, daily range): BP systolic 95–149; BP diastolic 35–96
[2020-03-06] MEDS: PIPERACILLIN/TAZOBACTAM 2.25 G in DEXTROSE 5% WATER 50 ML IV SCH ×5 (00:38→23:54)
[2020-03-06] MEDS: DEXT 5%/0.9% NACL 1,000 ML IV SCH ×2 (02:46→10:15)
[2020-03-06] MEDS: VANCOMYCIN 500 MG PREMIX 100 ML IV SCH (04:05)
[2020-03-06] MEDS: CALAMINE LOTION 120ML TOP SCH ×3 (06:32→21:17)
[2020-03-06] MEDS: VITAMINS A AND D OINT 5GM UDPKT TOP SCH (06:32)
[2020-03-06 06:34] LABS: BASOPHILS % 0.3 % (0.0-2.0); EOSINOPHILS % 0.8 % (0.0-5.0); HEMATOCRIT. 25.3 % (36.0-48.0); HEMOGLOBIN. 8.3 g/dL (12.0-16.0); LYMPHOCYTES % 15.1 % (20.0-50.0); MEAN CORPUSCULAR HEMOGLOBIN 29.2 pg (28.0-32.0); MONOCYTES % 7.7 % (2.0-8.0); NEUTROPHILS % 76.1 % (40.0-76.0); PLATELET 183 x1000/uL (130-400); RED BLOOD CELL COUNT 2.85 mill/uL (4.2-5.4); RED CELL DISTRIBUTION WIDTH 15.8 % (11.6-14.6)
[2020-03-06 06:40] LABS: CHLORIDE 116 mEq/L (98-107)
[2020-03-06] MEDS: BLOOD SUGAR DIAGNOSTIC STRIP TEST SCH ×4 (07:18→21:16)
[2020-03-06] MEDS: INSULIN LISPRO 100 UNITS/ML SUBCUT SCH ×5 (07:18→21:00)
[2020-03-06] MEDS ORDERED: POTASSIUM CHLORIDE INJ 50 MEQ in DEXT 5% WATER 500 ML IV NR (08:15)
[2020-03-06] MEDS: PANTOPRAZOLE SODIUM 40 MG/VIAL IV SCH (08:44)
[2020-03-06] MEDS: LEVETIRACETAM 500MG PREMIX 100 ML IV SCH ×2 (08:44→21:16)
[2020-03-06] MEDS: MIDODRINE HCL 5MG TABLET PO SCH ×3 (08:44→17:00)
[2020-03-06] MEDS: POLYETHYLENE GLYCOL 3350 (17GM) 1 DOSE PACK PO SCH (08:44)
[2020-03-06] MEDS: QUETIAPINE FUMARATE 25MG TABLET PO SCH (08:45)
[2020-03-06] MEDS: MORPHINE SULFATE 2 MG/ML CPJ (NOT FOR IM USE) IV PRN (08:45)
[2020-03-06] MEDS ORDERED: POTASSIUM CHLORIDE INJ 50 MEQ in DEXT 5% WATER 500 ML IV SCH (10:00)
[2020-03-06] MEDS ORDERED: FLUDROCORTISONE ACETATE 0.1MG TABLET PO NR (11:15)
[2020-03-06] MEDS ORDERED: VITAMINS A AND D OINT TUBE TOP SCH (13:00)
[2020-03-06] MEDS: VITAMINS A AND D OINT TUBE TOP SCH ×2 (13:23→21:17)
[2020-03-06] MEDS: LACTULOSE 20G/30ML UDC PO SCH (21:00)
[2020-03-06] MEDS: ENOXAPARIN 30MG/0.3ML SYR SUBCUT SCH (21:16)
[2020-03-07] VITALS (72 sets, daily range): BP systolic 49–154; BP diastolic 29–110
[2020-03-07] MEDS: MORPHINE SULFATE 2 MG/ML CPJ (NOT FOR IM USE) IV PRN ×2 (05:14→10:13)
[2020-03-07] MEDS: BLOOD SUGAR DIAGNOSTIC STRIP TEST SCH (05:38)
[2020-03-07] MEDS: VITAMINS A AND D OINT TUBE TOP SCH (05:38)
[2020-03-07] MEDS: CALAMINE LOTION 120ML TOP SCH (05:38)
[2020-03-07] MEDS: PIPERACILLIN/TAZOBACTAM 2.25 G in DEXTROSE 5% WATER 50 ML IV SCH ×2 (05:47→11:21)
[2020-03-07 07:11] LABS: CHLORIDE 112 mEq/L (98-107)
[2020-03-07] MEDS: VANCOMYCIN 500 MG PREMIX 100 ML IV SCH ×2 (08:00→10:13)
[2020-03-07] MEDS: INSULIN LISPRO 100 UNITS/ML SUBCUT SCH (08:00)
[2020-03-07] MEDS: MIDODRINE HCL 5MG TABLET PO SCH (09:00)
[2020-03-07] MEDS: QUETIAPINE FUMARATE 25MG TABLET PO SCH (09:00)
[2020-03-07] MEDS: POLYETHYLENE GLYCOL 3350 (17GM) 1 DOSE PACK PO SCH (09:00)
[2020-03-07] MEDS: PANTOPRAZOLE SODIUM 40 MG/VIAL IV SCH (09:55)
[2020-03-07] MEDS: LEVETIRACETAM 500MG PREMIX 100 ML IV SCH (10:13)
[2020-03-07] MEDS ORDERED: METHYLPREDNISOLONE SOD SUCC 40 MG/ML VIAL IV NR (10:30)
[2020-03-07] MEDS: LORAZEPAM 2MG/ML CPJ IV PRN (11:29)
[2020-03-07] MEDS ORDERED: IPRATROPIUM/ALBUTEROL 0.5-3(2.5)MG/3ML NEB HHN SCH (12:00)
[2020-03-07] MEDS ORDERED: ALBUTEROL 6.7GM HFA INHALER ORI SCH (12:15)
[2020-03-07 12:50] LABS: BG BASE EXCESS -17.5 mmol/L (-2.0-2.0); BG CARBOXYHEMOGLOBIN 0.1 % (0.5-1.5); BG DEOXYHEMOGLOBIN 16.5 % (0.0-5.0); BG FRACTION INSPIRED OXYGEN 99; BG HCO3 ACT 16.4 mmol/L (22.0-26.0); BG METHEMOGLOBIN 0.2 % (0.0-1.5); BG OXYGEN SATURATION 83.5 % (92.0-98.5); BG OXYHEMOGLOBIN 83.2 % (94.0-97.0); BG PCO2 91.9 mmHg (35.0-45.0); BG PH 6.869 (7.350-7.450); BG PO2 75.8 mmHg (75.0-100.0); BG SAMPLE SITE RIGHT BRACHIAL; BG TOTAL HEMOGLOBIN 10.5 g/dL (12.0-18.0); BG VENT MODE HI FLOW
[2020-03-07] MEDS ORDERED: SODIUM BICARBONATE 8.4% 1 MEQ/ML 50ML SYR IV NR (13:00)
[2020-03-07] MEDS ORDERED: MORPHINE SULFATE 2 MG/ML CPJ (NOT FOR IM USE) IV PRN (13:15)
[2020-03-07] MEDS ORDERED: LORAZEPAM 2MG/ML CPJ IV PRN (13:15)
[2020-03-07] MEDS: MORPHINE SULFATE 2 MG/ML CPJ (NOT FOR IM USE) IV SCH ×2 (13:27→16:24)
[2020-03-07] MEDS ORDERED: ALBUTEROL (0.083%) 2.5MG/3ML NEB HHN SCH (14:00)
[2020-03-07] MEDS ORDERED: MORPHINE SULFATE 250 MG in DEXT 5% WATER 240 ML IV STA (15:31)
[2020-03-07] MEDS ORDERED: MORPHINE SULFATE 250 MG in DEXT 5% WATER 225 ML IV PRN (16:30)
[2020-03-08 08:00] VITALS: BP 90/51
[2020-03-08 12:00] VITALS: BP 104/66
[2020-03-08 20:00] VITALS: BP 106/37
[2020-03-09] VITALS: BP 80/57
[2020-03-09 08:00] VITALS: BP 100/43
[2020-03-09 12:00] VITALS: BP 104/74
[2020-03-09 16:00] VITALS: BP 111/33
[2020-03-09 20:00] VITALS: BP 94/52
[2020-03-10] VITALS: BP 107/59
[2020-03-10 04:00] VITALS: BP 104/58
[2020-03-10 08:00] VITALS: BP 111/53
== END 2020-03-10 15:29 | disposition expired | DRG 871 ==
LOC: ER 12:06 → MICUSO 15:27 → EDBEDREQ 15:30 → EDBEDREQSVC 15:30 → 5EST 03-03 09:57 → 6EST 03-07 17:47
PROVIDERS: ADMIT Internal Medicine; ATTEND Internal Medicine
PROC: 5A09357 Assistance with Respiratory Ventilation, Less than 24 Consecutive Hours, Continuous Positive Airway Pressure (ICD-10-PCS; principal; 2020-02-27)
PROC: 02HV33Z Insertion of Infusion Device into Superior Vena Cava, Percutaneous Approach (ICD-10-PCS; 2020-02-28)
PROC: B548ZZA Ultrasonography of Superior Vena Cava, Guidance (ICD-10-PCS; 2020-02-28)
DX: A41.9 Sepsis, unspecified organism (principal); R65.21 Severe sepsis with septic shock; K65.9 Peritonitis, unspecified; J96.21 Acute and chronic respiratory failure with hypoxia; E43 Unspecified severe protein-calorie malnutrition; J18.9 Pneumonia, unspecified organism; K94.23 Gastrostomy malfunction; N39.0 Urinary tract infection, site not specified; E87.0 Hyperosmolality and hypernatremia; E87.2 Acidosis; G93.40 Encephalopathy, unspecified; N17.9 Acute kidney failure, unspecified; J44.0 Chronic obstructive pulmonary disease with (acute) lower respiratory infection; L03.311 Cellulitis of abdominal wall; D68.69 Other thrombophilia; Z68.1 Body mass index [BMI] 19.9 or less, adult; D50.9 Iron deficiency anemia, unspecified; F03.90 Unspecified dementia, unspecified severity, without behavioral disturbance, psychotic disturbance, mood disturbance, and anxiety; G24.9 Dystonia, unspecified; G40.909 Epilepsy, unspecified, not intractable, without status epilepticus; K44.9 Diaphragmatic hernia without obstruction or gangrene; K56.41 Fecal impaction; R13.10 Dysphagia, unspecified; Z66 Do not resuscitate; R73.9 Hyperglycemia, unspecified; D72.829 Elevated white blood cell count, unspecified; B96.20 Unspecified Escherichia coli [E. coli] as the cause of diseases classified elsewhere; R13.12 Dysphagia, oropharyngeal phase; Z20.822 Contact with and (suspected) exposure to COVID-19; Z51.5 Encounter for palliative care; K31.89 Other diseases of stomach and duodenum; R00.0 Tachycardia, unspecified; Z87.440 Personal history of urinary (tract) infections; Z79.899 Other long term (current) drug therapy; Z86.61 Personal history of infections of the central nervous system
CPT/HCPCS: 36415; 36600; 71045; 74018; 74176; 76937; 80048; 80053; 80061; 80202; 81003; 82375; 82533; 82550; 82553; 82728; 82805; 82962; 83036; 83540; 83550; 83605; 83615; 83880; 84145; 84439; 84443; 84484; 85025; 85379; 85384; 86140; 86850; 86900; 87077; 87186; 87426; 87635; 87804; 92950; 93005; 94660; 96365; 99291; C1725; C9113; J1100; J1650; J1815; J1953; J2060; J2270; J2543; J2920; J3370; J3480; J3490; J7040; J7042; J7060; J7070; Q9963